=== PATIENT | female | born 1950 | race Caucasian/White ===

== ENCOUNTER 2018-12-22 14:42 | Inpatient (IN) | payer MEDICARE, MEDICAID ==
[~2018-12-22] VITALS: Ht 152.4 cm; Wt 89.0 kg
[2018-12-22 15:22] LABS: BASOPHILS # (AUTO) 0.1 X10'3 (0-0.2); BASOPHILS % (AUTO) 1.1 % (0-1); EOSINOPHILS # (AUTO) 0.1 X10'3 (0-0.9); EOSINOPHILS % (AUTO) 0.8 % (0-6); HEMATOCRIT 38.9 % (35.0-45.0); HEMOGLOBIN 12.6 g/dl (12.0-16.0); LYMPHOCYTES # (AUTO) 1.4 X10'3 (1.1-4.8); LYMPHOCYTES % (AUTO) 12.1 % (21-51); MEAN CORPUSCULAR HEMOGLOBIN 28.7 PG (27.0-31.0); MEAN CORPUSCULAR HGB CONC 32.5 g/dL (33.0-36.5); MEAN CORPUSCULAR VOLUME 88.4 FL (78-98); MEAN PLATELET VOLUME 8.1 FL (7.4-10.4); MONOCYTES # (AUTO) 0.8 X10'3 (0-0.9); MONOCYTES % (AUTO) 6.8 % (2-12); NEUTROPHILS # (AUTO) 9.3 X10'3 (1.8-7.7); NEUTROPHILS % (AUTO) 79.2 % (42-75); PLATELET COUNT 192 X10'3 (140-440); RED BLOOD COUNT 4.39 X10'6 (4.20-5.60); RED CELL DISTRIBUTION WIDTH 16.6 % (11.5-14.5); WHITE BLOOD COUNT 11.7 X10'3 (4.5-11.0)
[2018-12-22 15:35] LABS: PARTIAL THROMBOPLASTIN TIME 23 SECONDS (22-32)
[2018-12-22 15:36] LABS: ALANINE AMINOTRANSFERASE 44 U/L (12-78); ALBUMIN/GLOBULIN RATIO 0.8 (1.1-1.5); ALKALINE PHOSPHATASE 83 IU/L (46-116); ANION GAP 6 (8-16); ASPARTATE AMINO TRANSFERASE 19 U/L (10-37); BILIRUBIN,TOTAL 0.6 MG/DL (0.1-1.0); BLOOD UREA NITROGEN 32 MG/DL (7-18); BUN/CREATININE RATIO 26.4 (6.6-38.0); CHLORIDE 107 MMOL/L (99-107); CREATININE 1.21 MG/DL (0.40-0.90); GLUCOSE 104 MG/DL (70-104); POTASSIUM 4.4 MMOL/L (3.5-5.1); SODIUM 143 MMOL/L (135-145); TOTAL PROTEIN 6.7 G/DL (6.4-8.2); eGFR 45 ML/MIN
--- NOTE | 2018-12-22 17:08 | NUR ---
WAITING MD, EXPLAINED DELAY, VSS. PT IN NO DISTRESS AND LAUGHING WITH SPOUSE AT BEDSIDE.
[2018-12-22] MEDS ORDERED: albuterol 2.5 MG/3 ML nebule NEB ONE (17:30)
[2018-12-22] MEDS ORDERED: CefTRIAXone 2gm/D5W 50ml 50 ML IV ONE (17:30)
[2018-12-22] MEDS ORDERED: ipratropium/albuterol 3ml nebule NEB ONE (17:30)
[2018-12-22] MEDS ORDERED: methylPREDNISolone sod succ 125mg/2ml vial IV ONE (17:30)
[2018-12-22] MEDS ORDERED: acetaminophen 325mg tablet PO PRN (17:45)
[2018-12-22] MEDS ORDERED: ondansetron/PF 4mg/2ml inj IV PRN (17:45)
[2018-12-22] MEDS ORDERED: furosemide 40mg/4ml inj IV ONE (17:45)
[2018-12-22] MEDS ORDERED: magnesium hydroxide 30ml (MOM) UD suspension PO PRN (17:45)
[2018-12-22] MEDS ORDERED: mag hydrox/Alum hydrox/simeth 30ml oral suspension PO PRN (17:45)
--- NOTE | 2018-12-22 18:21 | NUR ---
RT present at bedside to administer breathing tx.
--- NOTE | 2018-12-22 19:31 | NUR ---
ASSISTED TO [facility], PLACED O2 NC BACK ON PATIENT
[2018-12-22] MEDS ORDERED: QUET100T33 PO (19:44)
[2018-12-22] MEDS ORDERED: DOXY100C43 PO (19:44)
[2018-12-22] MEDS ORDERED: PRED20TA PO (19:44)
[2018-12-22] MEDS ORDERED: CHLO25TA2 PO (19:44)
[2018-12-22 20:00] VITALS: BP 164/90
--- NOTE | 2018-12-22 20:00 | NUR ---
Patient in room MED 316. I have received report from YANICK MEJIA RN and had the opportunity to ask questions and assume patient care.
[2018-12-22] MEDS: heparin, porcine 5000 units/ml vial SQ SCH (22:45)
[2018-12-22] MEDS: furosemide 10 MG/1 ML 10ml inj IV SCH (22:46)
[2018-12-23 05:31] LABS: BASOPHILS % (AUTO) 0.2 % (0-1); EOSINOPHILS % (AUTO) 0.1 % (0-6); HEMATOCRIT 38.5 % (35.0-45.0); HEMOGLOBIN 12.6 g/dl (12.0-16.0); LYMPHOCYTES # (AUTO) 0.4 X10'3 (1.1-4.8); LYMPHOCYTES % (AUTO) 2.9 % (21-51); MEAN CORPUSCULAR HEMOGLOBIN 28.9 PG (27.0-31.0); MEAN CORPUSCULAR HGB CONC 32.8 g/dL (33.0-36.5); MEAN CORPUSCULAR VOLUME 88.2 FL (78-98); MEAN PLATELET VOLUME 9.2 FL (7.4-10.4); MONOCYTES # (AUTO) 0.2 X10'3 (0-0.9); MONOCYTES % (AUTO) 1.9 % (2-12); NEUTROPHILS # (AUTO) 11.9 X10'3 (1.8-7.7); NEUTROPHILS % (AUTO) 94.9 % (42-75); PLATELET COUNT 184 X10'3 (140-440); RED BLOOD COUNT 4.37 X10'6 (4.20-5.60); RED CELL DISTRIBUTION WIDTH 16.2 % (11.5-14.5); WHITE BLOOD COUNT 12.6 X10'3 (4.5-11.0)
[2018-12-23 05:34] LABS: ANION GAP 10 (8-16); BLOOD UREA NITROGEN 39 MG/DL (7-18); BUN/CREATININE RATIO 27.7 (6.6-38.0); CHLORIDE 102 MMOL/L (99-107); CREATININE 1.41 MG/DL (0.40-0.90); GLUCOSE 179 MG/DL (70-104); SODIUM 141 MMOL/L (135-145); TOTAL CARBON DIOXIDE 29.3 MMOL/L (24-32); eGFR 37 ML/MIN
[2018-12-23 06:00] VITALS: BP 157/99
--- NOTE | 2018-12-23 06:25 | NUR ---
Patient in room MED 316. I have received report from Constance NAQVI and had the opportunity to ask questions and assume patient care.
[2018-12-23] MEDS: furosemide 10 MG/1 ML 10ml inj IV SCH ×2 (07:50→20:58)
[2018-12-23] MEDS: heparin, porcine 5000 units/ml vial SQ SCH ×2 (07:51→20:57)
--- NOTE | 2018-12-23 08:05 | NUR ---
PAGER ID: [phone] MESSAGE: RE: Maria Del Carmen Prajapati, Room 316. Pt to receive first dose of Rocephin this morning. Do you want blood cultures drawn prior to giving? -Anam ACCE #[id number] Dr. Lopez paged concerning First dose of IV ABX and blood cultures
[2018-12-23] MEDS: nicotine 14mg patch - 24hr TD SCH (09:36)
[2018-12-23] MEDS: CefTRIAXone 2gm/D5W 50ml 50 ML IV SCH (09:37)
[2018-12-23] MEDS ORDERED: predniSONE 20 mg tablet PO ONE (12:15)
[2018-12-23 12:21] LABS: URINE AMPHETAMINE SCREEN NEGATIVE (Neg); URINE BARBITUATE SCREEN NEGATIVE (Neg); URINE BENZODIAZEPINES SCREEN NEGATIVE (Neg); URINE CANNABINOID SCREEN NEGATIVE (Neg); URINE COCAINE SCREEN NEGATIVE (Neg); URINE METHADONE SCREEN NEGATIVE (Neg); URINE OPIATE SCREEN NEGATIVE (Neg); URINE PHENCYCLIDINE SCREEN NEGATIVE (Neg)
--- NOTE | 2018-12-23 13:39 | NUR ---
PAGER ID: [phone] MESSAGE: 316: COOK - may we order K / mg replacement? K is 4.0 before Lasix given this AM. ty
[2018-12-23 15:00] VITALS: BP 145/85
[2018-12-23] MEDS ORDERED: FLU VACC QS 2019-20 (6 MOS UP) 60 MCG/0.5 ML VIAL IMVAC ONE (16:30)
[2018-12-23] MEDS ORDERED: pneumococcal 23-VAL P-sac vacc 25 mcg/0.5ml vial IMVAC ONE (16:30)
[2018-12-23] MEDS: ipratropium/albuterol 3ml nebule NEB SCH ×3 (16:35→23:19)
[2018-12-23 18:00] VITALS: BP 155/81
--- NOTE | 2018-12-23 18:00 | NUR ---
Patient in room MED 316. I have received report from Anam NAQVI and had the opportunity to ask questions and assume patient care.
--- NOTE | 2018-12-23 18:30 | NUR ---
.Problems reprioritized. Patient report given, questions answered & plan of care reviewed with Ade NAQVI.
[2018-12-23] MEDS: quetiapine 100mg tablet PO SCH (20:54)
[2018-12-23 23:00] VITALS: BP 127/65
[2018-12-24] VITALS (7 sets, daily range): BP systolic 100–154; BP diastolic 66–113
[2018-12-24] MEDS: ipratropium/albuterol 3ml nebule NEB SCH ×6 (02:59→23:40)
[2018-12-24 05:35] LABS: ALBUMIN 2.7 G/DL (3.4-5.0); ANION GAP 4 (8-16); BLOOD UREA NITROGEN 38 MG/DL (7-18); BUN/CREATININE RATIO 29.7 (6.6-38.0); CALCIUM 8.6 MG/DL (8.5-10.1); CHLORIDE 101 MMOL/L (99-107); CREATININE 1.28 MG/DL (0.40-0.90); GLUCOSE 119 MG/DL (70-104); POTASSIUM 3.6 MMOL/L (3.5-5.1); SODIUM 141 MMOL/L (135-145); TOTAL CARBON DIOXIDE 35.9 MMOL/L (24-32); eGFR 42 ML/MIN
[2018-12-24 06:15] LABS: BASOPHILS # (AUTO) 0.1 X10'3 (0-0.2); EOSINOPHILS % (AUTO) 0.2 % (0-6); HEMATOCRIT 36.3 % (35.0-45.0); LYMPHOCYTES # (AUTO) 1.6 X10'3 (1.1-4.8); LYMPHOCYTES % (AUTO) 12.8 % (21-51); MEAN CORPUSCULAR HEMOGLOBIN 28.9 PG (27.0-31.0); MEAN CORPUSCULAR HGB CONC 33.1 g/dL (33.0-36.5); MEAN CORPUSCULAR VOLUME 87.4 FL (78-98); MEAN PLATELET VOLUME 9.5 FL (7.4-10.4); MONOCYTES # (AUTO) 0.8 X10'3 (0-0.9); MONOCYTES % (AUTO) 6.5 % (2-12); NEUTROPHILS % (AUTO) 79.5 % (42-75); PLATELET COUNT 159 X10'3 (140-440); RED BLOOD COUNT 4.15 X10'6 (4.20-5.60); RED CELL DISTRIBUTION WIDTH 16.5 % (11.5-14.5); WHITE BLOOD COUNT 12.5 X10'3 (4.5-11.0)
[2018-12-24] MEDS: predniSONE 20 mg tablet PO SCH (09:55)
[2018-12-24] MEDS: furosemide 10 MG/1 ML 10ml inj IV SCH ×2 (09:56→20:56)
[2018-12-24] MEDS: nicotine 14mg patch - 24hr TD SCH (09:56)
[2018-12-24] MEDS: heparin, porcine 5000 units/ml vial SQ SCH ×2 (09:56→20:50)
[2018-12-24] MEDS: CefTRIAXone 2gm/D5W 50ml 50 ML IV SCH (09:57)
[2018-12-24] MEDS: atenolol 25mg tablet PO SCH ×2 (14:00→17:02)
[2018-12-24] MEDS: quetiapine 100mg tablet PO SCH (20:47)
[2018-12-24] MEDS: lactobacillus rhamnosus 10,000 MMU CELLS/CAPSULE PO SCH (20:47)
[2018-12-25] MEDS ORDERED: nicotine 7mg patch - 24hr TD ONE (00:25)
[2018-12-25 02:00] VITALS: BP 127/71
[2018-12-25] MEDS: ipratropium/albuterol 3ml nebule NEB SCH ×4 (03:04→16:13)
[2018-12-25 06:00] VITALS: BP 122/85
--- NOTE | 2018-12-25 06:15 | NUR ---
Patient in room MED 311. I have received report from DRISS Booker and had the opportunity to ask questions and assume patient care.
--- NOTE | 2018-12-25 06:26 | NUR ---
Problems reprioritized. Patient report given, questions answered & plan of care reviewed with Phil NAQVI.
[2018-12-25 06:28] LABS: ALBUMIN 2.8 G/DL (3.4-5.0); ANION GAP 5 (8-16); BLOOD UREA NITROGEN 42 MG/DL (7-18); BUN/CREATININE RATIO 27.1 (6.6-38.0); CALCIUM 8.4 MG/DL (8.5-10.1); CHLORIDE 98 MMOL/L (99-107); CREATININE 1.55 MG/DL (0.40-0.90); GLUCOSE 128 MG/DL (70-104); POTASSIUM 3.5 MMOL/L (3.5-5.1); SODIUM 141 MMOL/L (135-145); TOTAL CARBON DIOXIDE 38.4 MMOL/L (24-32); eGFR 33 ML/MIN
--- NOTE | 2018-12-25 06:41 | NUR ---
I have received report from Melissa NAQVI and had the opportunity to ask questions and assume patient care.
[2018-12-25 06:49] LABS: BASOPHILS % (AUTO) 0.4 % (0-1); EOSINOPHILS # (AUTO) 0.1 X10'3 (0-0.9); EOSINOPHILS % (AUTO) 0.5 % (0-6); HEMOGLOBIN 12.2 g/dl (12.0-16.0); LYMPHOCYTES # (AUTO) 2.1 X10'3 (1.1-4.8); LYMPHOCYTES % (AUTO) 17.7 % (21-51); MEAN CORPUSCULAR HEMOGLOBIN 28.9 PG (27.0-31.0); MEAN CORPUSCULAR VOLUME 87.5 FL (78-98); MEAN PLATELET VOLUME 9.4 FL (7.4-10.4); MONOCYTES # (AUTO) 0.9 X10'3 (0-0.9); MONOCYTES % (AUTO) 7.5 % (2-12); NEUTROPHILS # (AUTO) 8.9 X10'3 (1.8-7.7); NEUTROPHILS % (AUTO) 73.9 % (42-75); PLATELET COUNT 159 X10'3 (140-440); RED BLOOD COUNT 4.23 X10'6 (4.20-5.60); RED CELL DISTRIBUTION WIDTH 16.5 % (11.5-14.5)
[2018-12-25] MEDS: lactobacillus rhamnosus 10,000 MMU CELLS/CAPSULE PO SCH (07:31)
[2018-12-25] MEDS: CefTRIAXone 2gm/D5W 50ml 50 ML IV SCH (07:31)
[2018-12-25] MEDS: nicotine 14mg patch - 24hr TD SCH (07:32)
[2018-12-25] MEDS: atenolol 25mg tablet PO SCH (07:33)
[2018-12-25] MEDS: furosemide 10 MG/1 ML 10ml inj IV SCH (07:33)
[2018-12-25] MEDS: heparin, porcine 5000 units/ml vial SQ SCH (07:34)
[2018-12-25] MEDS: predniSONE 20 mg tablet PO SCH (07:37)
[2018-12-25 11:00] VITALS: BP 126/78
[2018-12-25] MEDS ORDERED: PRED10TA23 PO (13:30)
[2018-12-25] MEDS ORDERED: FURO-149 PO (13:30)
[2018-12-25] MEDS ORDERED: ALBU8HFA PO (13:30)
[2018-12-25] MEDS ORDERED: POTA20TA19 PO (13:30)
[2018-12-25] MEDS ORDERED: ATEN-168 PO (13:30)
[2018-12-25] MEDS ORDERED: LEVO750T21 PO (13:30)
[2018-12-25] MEDS ORDERED: atenolol 25mg tablet PO SCH (13:51)
--- NOTE | 2018-12-25 13:59 | NUR ---
Orienteer documentation: I have reviewed and agree with all interventions, assessments performed and documented by Ann Marie NAQVI.
--- NOTE | 2018-12-25 14:39 | NUR ---
PAGER ID: [phone] MESSAGE: [id number]-Cook. Pt. is asking about nicotine patches, can we order those for her with the other discharge meds? Thank You ACCE [id number]
[2018-12-25 15:00] VITALS: BP 134/83
--- NOTE | 2018-12-25 16:55 | NUR ---
Per MD, patient stable for discharge. Prescriptions called into [facility], patient will picker in the AM when pharmacy is open. All belongings sent with patient and family member. PIV removed, tip intact, pt tolerated well. Discharge paperwork reviewed with and signed by patient. All questions and concerns were addressed with patient and family member. Transported via WC by nursing staff to personal vehicle.
[2018-12-26] MEDS ORDERED: LISI2.5T2 PO (17:50)
== END 2018-12-25 17:02 | disposition home health service (06) | DRG 291 ==
LOC: ER 14:43 → ED HOLD 18:10 → MED 3N 19:55
PROVIDERS: ADMIT Family Medicine; ATTEND Family Medicine
PROC: 3E02340 Introduction of Influenza Vaccine into Muscle, Percutaneous Approach (ICD-10-PCS; principal; 2018-12-25)
PROC: 3E0234Z Introduction of Serum, Toxoid and Vaccine into Muscle, Percutaneous Approach (ICD-10-PCS; 2018-12-25)
DX: I11.0 Hypertensive heart disease with heart failure (principal); J96.01 Acute respiratory failure with hypoxia; J18.9 Pneumonia, unspecified organism; I50.21 Acute systolic (congestive) heart failure; E87.3 Alkalosis; F17.210 Nicotine dependence, cigarettes, uncomplicated; I27.20 Pulmonary hypertension, unspecified; I42.0 Dilated cardiomyopathy; J43.9 Emphysema, unspecified; Z90.710 Acquired absence of both cervix and uterus; Z90.49 Acquired absence of other specified parts of digestive tract; Z23 Encounter for immunization; Z56.0 Unemployment, unspecified; Z90.722 Acquired absence of ovaries, bilateral
CPT/HCPCS: 36415; 71046; 80048; 80053; 80305; 83880; 84484; 85025; 85610; 85730; 87081; 93005; 93306; 94640; 94760; 99285; G0378; J0696; J1644; J1940; J2930; J7512; Q2037

== ENCOUNTER 2019-02-01 04:31 | Inpatient (IN) | payer MEDICARE, MEDICAID ==
[~2019-02-01] VITALS: Ht 162.6 cm; Wt 81.8 kg
[~2019-02-01 04:31] MED LIST: ATEN-168 PO; FURO-149 PO; LISI2.5T2 PO; QUET100T33 PO
[2019-02-01] MEDS ORDERED: NO HOME MEDS (04:47)
[2019-02-01] MEDS ORDERED: aspirin 81mg tab.chew PO ONE (04:50)
[2019-02-01] MEDS ORDERED: furosemide 10 MG/1 ML 10ml inj IV ONE (04:50)
[2019-02-01] MEDS ORDERED: nitroGLYCERIN 0.4mg/hour patch TD ONE (04:50)
[2019-02-01 05:23] LABS: BASOPHILS # (AUTO) 0.1 X10'3 (0-0.2); EOSINOPHILS % (AUTO) 0.5 % (0-6); HEMATOCRIT 41.3 % (35.0-45.0); HEMOGLOBIN 13.9 g/dl (12.0-16.0); LYMPHOCYTES # (AUTO) 1.3 X10'3 (1.1-4.8); LYMPHOCYTES % (AUTO) 15.5 % (21-51); MEAN CORPUSCULAR HEMOGLOBIN 29.3 PG (27.0-31.0); MEAN CORPUSCULAR HGB CONC 33.7 g/dL (33.0-36.5); MEAN CORPUSCULAR VOLUME 87.1 FL (78-98); MEAN PLATELET VOLUME 9.1 FL (7.4-10.4); MONOCYTES # (AUTO) 0.6 X10'3 (0-0.9); MONOCYTES % (AUTO) 6.4 % (2-12); NEUTROPHILS # (AUTO) 6.7 X10'3 (1.8-7.7); NEUTROPHILS % (AUTO) 76.6 % (42-75); PLATELET COUNT 237 X10'3 (140-440); RED BLOOD COUNT 4.75 X10'6 (4.20-5.60); WHITE BLOOD COUNT 8.7 X10'3 (4.5-11.0)
[2019-02-01 05:40] LABS: ALANINE AMINOTRANSFERASE 39 U/L (12-78); ALBUMIN 3.1 G/DL (3.4-5.0); ALBUMIN/GLOBULIN RATIO 0.8 (1.1-1.5); ALKALINE PHOSPHATASE 107 IU/L (46-116); ANION GAP 11 (8-16); ASPARTATE AMINO TRANSFERASE 34 U/L (10-37); BILIRUBIN,TOTAL 1.3 MG/DL (0.1-1.0); BLOOD UREA NITROGEN 25 MG/DL (7-18); BUN/CREATININE RATIO 21.7 (6.6-38.0); CALCIUM 8.9 MG/DL (8.5-10.1); CHLORIDE 104 MMOL/L (99-107); CREATININE 1.15 MG/DL (0.40-0.90); GLUCOSE 128 MG/DL (70-104); POTASSIUM 3.7 MMOL/L (3.5-5.1); SODIUM 140 MMOL/L (135-145); TOTAL CARBON DIOXIDE 25.3 MMOL/L (24-32); TOTAL PROTEIN 7.2 G/DL (6.4-8.2); eGFR 47 ML/MIN
[2019-02-01 05:50] LABS: MAGNESIUM 1.6 MG/DL (1.5-2.4)
--- NOTE | 2019-02-01 06:09 | NUR ---
Patient requests bipap be removed because she states it is harder to breathe. Patient placed back on nasal canula and will continue to monitor need for bipap.
[2019-02-01] MEDS ORDERED: magnesium 2GM in 50ml NS 50 ML IV PRN (06:25)
[2019-02-01] MEDS ORDERED: magnesium 4gm in 100ml NS 100 ML IV PRN (06:25)
[2019-02-01] MEDS ORDERED: magnesium Cl slow-release 64mg tablet PO PRN (06:25)
[2019-02-01] MEDS ORDERED: ondansetron/PF 4mg/2ml inj IV PRN (06:25)
[2019-02-01] MEDS ORDERED: acetaminophen 325mg tablet PO PRN (06:25)
[2019-02-01] MEDS ORDERED: potassium CL 10mEq/100ml bag 100 ML IV PRN ×2 (06:25)
[2019-02-01] MEDS ORDERED: potassium Cl 20 mEq SR tablet PO PRN (06:25)
[2019-02-01] MEDS ORDERED: methylPREDNISolone sod succ 125mg/2ml vial IV ONE (06:35)
[2019-02-01] MEDS ORDERED: albuterol 2.5 MG/3 ML nebule NEB PRN (06:35)
[2019-02-01] MEDS: K and/or MAG REPLACEMENT MC SCH ×2 (08:00→20:00)
[2019-02-01] MEDS ORDERED: metoprolol tartrate 50mg tablet PO SCH (08:00)
[2019-02-01 08:14] LABS: D-DIMER 1.86 MG/L FEU (0-0.50)
[2019-02-01] MEDS: lisinopril 2.5mg tablet PO SCH (08:43)
[2019-02-01] MEDS: heparin, porcine 5000 units/ml vial SQ SCH ×2 (08:45→20:41)
[2019-02-01] MEDS: furosemide 40mg/4ml inj IV SCH ×2 (08:47→20:41)
--- NOTE | 2019-02-01 09:06 | NUR ---
Patient in room ED 6. I have received report from jose,directional bore operator and had the opportunity to ask questions and assume patient care.
[2019-02-01 09:50] VITALS: BP 154/99
--- NOTE | 2019-02-01 10:30 | NUR ---
Received pt into rm 313,oriented to environment pt tachypnic,rr=28,sao2 3l/nc=94,Dr. zhu aware trponin 0.07-0.08.orders taken
[2019-02-01 11:00] VITALS: BP 158/109
[2019-02-01 11:03] LABS: ALBUMIN 3.3 G/DL (3.4-5.0); ANION GAP 5 (8-16); BLOOD UREA NITROGEN 26 MG/DL (7-18); BUN/CREATININE RATIO 20.5 (6.6-38.0); CALCIUM 9.2 MG/DL (8.5-10.1); CHLORIDE 103 MMOL/L (99-107); CREATININE 1.27 MG/DL (0.40-0.90); GLUCOSE 137 MG/DL (70-104); PHOSPHORUS 4.2 MG/DL (2.3-4.5); POTASSIUM 3.9 MMOL/L (3.5-5.1); SODIUM 139 MMOL/L (135-145); TOTAL CARBON DIOXIDE 30.6 MMOL/L (24-32); eGFR 42 ML/MIN
[2019-02-01 11:40] LABS: ABG BASE EXCESS 0.4 mmol/L (-2.0-3.0); ABG HCO3 23.9 mmol/L (22.0-26.0); ABG OXYGEN SATURATION 95.2 % (95-98); ABG PCO2 (T) 35.4 mmHg (35.0-45.0); ABG PH (T) 7.448 (7.350-7.450); ABG PO2 (T) 80.8 mmHg (83-108); ALLEN'S TEST Positive; FLOW 2 L/min; FO2Hb 94.2 % (94-100); TOTAL HEMOGLOBIN 14.3 G/dl (12.0-16.0)
[2019-02-01 12:21] LABS: MAGNESIUM 1.4 MG/DL (1.5-2.4)
[2019-02-01 15:00] VITALS: BP 152/82
[2019-02-01] MEDS ORDERED: LORazepam 2 mg/ml vial IV ONE (16:00)
[2019-02-01 18:00] VITALS: BP 139/79
--- NOTE | 2019-02-01 18:59 | NUR ---
Patient in room MED 313. I have received report from Jessica Reddy and had the opportunity to ask questions and assume patient care.
[2019-02-01] MEDS: metoprolol tartrate 12.5mg (1/2 tablet) PO SCH (20:41)
[2019-02-01] MEDS: ipratropium 0.5 MG/2.5ML nebule IH SCH ×2 (21:43→21:48)
[2019-02-01 22:00] VITALS: BP 121/67
[2019-02-02] VITALS (7 sets, daily range): BP systolic 102–137; BP diastolic 67–85
[2019-02-02] MEDS: ipratropium 0.5 MG/2.5ML nebule IH SCH ×4 (02:55→20:43)
[2019-02-02 03:30] LABS: BASOPHILS # (AUTO) 0.1 X10'3 (0-0.2); BASOPHILS % (AUTO) 0.4 % (0-1); EOSINOPHILS % (AUTO) 0.1 % (0-6); HEMATOCRIT 38.2 % (35.0-45.0); HEMOGLOBIN 12.8 g/dl (12.0-16.0); LYMPHOCYTES # (AUTO) 1.2 X10'3 (1.1-4.8); LYMPHOCYTES % (AUTO) 8.3 % (21-51); MEAN CORPUSCULAR HEMOGLOBIN 28.8 PG (27.0-31.0); MEAN CORPUSCULAR HGB CONC 33.4 g/dL (33.0-36.5); MEAN PLATELET VOLUME 8.6 FL (7.4-10.4); MONOCYTES # (AUTO) 1.1 X10'3 (0-0.9); MONOCYTES % (AUTO) 8.1 % (2-12); NEUTROPHILS # (AUTO) 11.7 X10'3 (1.8-7.7); NEUTROPHILS % (AUTO) 83.1 % (42-75); PLATELET COUNT 261 X10'3 (140-440); RED BLOOD COUNT 4.44 X10'6 (4.20-5.60); RED CELL DISTRIBUTION WIDTH 17.4 % (11.5-14.5); WHITE BLOOD COUNT 14.1 X10'3 (4.5-11.0)
[2019-02-02 03:42] LABS: ALBUMIN 2.7 G/DL (3.4-5.0); ANION GAP 3 (8-16); BLOOD UREA NITROGEN 33 MG/DL (7-18); BUN/CREATININE RATIO 21.4 (6.6-38.0); CALCIUM 8.4 MG/DL (8.5-10.1); CHLORIDE 101 MMOL/L (99-107); CREATININE 1.54 MG/DL (0.40-0.90); GLUCOSE 106 MG/DL (70-104); MAGNESIUM 2.7 MG/DL (1.5-2.4); POTASSIUM 3.7 MMOL/L (3.5-5.1); SODIUM 138 MMOL/L (135-145); TOTAL CARBON DIOXIDE 33.7 MMOL/L (24-32); eGFR 34 ML/MIN
--- NOTE | 2019-02-02 06:27 | NUR ---
Problems reprioritized. Patient report given, questions answered & plan of care reviewed with Sophia NAQVI.
--- NOTE | 2019-02-02 06:30 | NUR ---
Patient in room MED 313. I have received report from Jeff NAQVI and had the opportunity to ask questions and assume patient care.
[2019-02-02] MEDS: K and/or MAG REPLACEMENT MC SCH ×2 (08:00→20:00)
[2019-02-02] MEDS: furosemide 40mg/4ml inj IV SCH ×2 (09:53→19:35)
[2019-02-02] MEDS: heparin, porcine 5000 units/ml vial SQ SCH ×2 (09:54→19:35)
[2019-02-02] MEDS: lisinopril 2.5mg tablet PO SCH (09:57)
[2019-02-02] MEDS: nicotine 21mg patch - 24 hr TD SCH (09:58)
[2019-02-02] MEDS: metoprolol tartrate 12.5mg (1/2 tablet) PO SCH ×2 (09:58→19:36)
--- NOTE | 2019-02-02 19:04 | NUR ---
Patient in room MED 313. I have received report from Sophia NAQVI and had the opportunity to ask questions and assume patient care.
[2019-02-02] MEDS ORDERED: QUET100T33 PO (19:51)
[2019-02-03 02:00] VITALS: BP 117/67
[2019-02-03] MEDS: ipratropium 0.5 MG/2.5ML nebule IH SCH ×3 (02:33→16:02)
[2019-02-03 06:00] VITALS: BP 123/76
[2019-02-03 06:31] LABS: BASOPHILS # (AUTO) 0.1 X10'3 (0-0.2); BASOPHILS % (AUTO) 0.9 % (0-1); EOSINOPHILS # (AUTO) 0.1 X10'3 (0-0.9); EOSINOPHILS % (AUTO) 0.5 % (0-6); HEMOGLOBIN 13.7 g/dl (12.0-16.0); LYMPHOCYTES # (AUTO) 2.2 X10'3 (1.1-4.8); LYMPHOCYTES % (AUTO) 18.4 % (21-51); MEAN CORPUSCULAR HEMOGLOBIN 29.3 PG (27.0-31.0); MEAN CORPUSCULAR HGB CONC 33.5 g/dL (33.0-36.5); MEAN CORPUSCULAR VOLUME 87.5 FL (78-98); MEAN PLATELET VOLUME 9.8 FL (7.4-10.4); MONOCYTES # (AUTO) 0.9 X10'3 (0-0.9); MONOCYTES % (AUTO) 7.7 % (2-12); NEUTROPHILS # (AUTO) 8.7 X10'3 (1.8-7.7); NEUTROPHILS % (AUTO) 72.5 % (42-75); PLATELET COUNT 216 X10'3 (140-440); RED BLOOD COUNT 4.69 X10'6 (4.20-5.60); RED CELL DISTRIBUTION WIDTH 17.8 % (11.5-14.5)
--- NOTE | 2019-02-03 06:34 | NUR ---
Problems reprioritized. Patient report given, questions answered & plan of care reviewed with Keshia NAQVI.
[2019-02-03 06:38] LABS: ALBUMIN 2.9 G/DL (3.4-5.0); ANION GAP 11 (8-16); BLOOD UREA NITROGEN 42 MG/DL (7-18); CALCIUM 8.3 MG/DL (8.5-10.1); CHLORIDE 98 MMOL/L (99-107); CREATININE 1.68 MG/DL (0.40-0.90); GLUCOSE 120 MG/DL (70-104); MAGNESIUM 1.9 MG/DL (1.5-2.4); POTASSIUM 3.4 MMOL/L (3.5-5.1); SODIUM 139 MMOL/L (135-145); TOTAL CARBON DIOXIDE 30.4 MMOL/L (24-32); eGFR 30 ML/MIN
[2019-02-03] MEDS: heparin, porcine 5000 units/ml vial SQ SCH (08:00)
[2019-02-03] MEDS: furosemide 40mg/4ml inj IV SCH (08:34)
[2019-02-03] MEDS: potassium Cl 20 mEq SR tablet PO PRN ×2 (08:36→15:50)
[2019-02-03] MEDS: lisinopril 2.5mg tablet PO SCH (08:40)
[2019-02-03] MEDS: metoprolol tartrate 12.5mg (1/2 tablet) PO SCH (08:40)
[2019-02-03] MEDS: nicotine 21mg patch - 24 hr TD SCH (08:41)
[2019-02-03] MEDS: K and/or MAG REPLACEMENT MC SCH (08:44)
[2019-02-03 11:00] VITALS: BP 125/74
[2019-02-03] MEDS ORDERED: furosemide 20MG tablet PO ONE (12:40)
[2019-02-03 15:00] VITALS: BP 126/88
[2019-02-03] MEDS ORDERED: UMEC62.5 NAS (15:00)
[2019-02-03] MEDS ORDERED: LISI2.5T2 PO (15:00)
[2019-02-03] MEDS ORDERED: FURO-150 PO (15:00)
[2019-02-03] MEDS ORDERED: METO25TA6 PO (15:00)
[2019-02-03] MEDS ORDERED: ALBU18HF2 IH (15:00)
[2019-02-03] MEDS ORDERED: BUDE10.22 INH (15:00)
--- NOTE | 2019-02-03 15:26 | NUR ---
O2 Sat at rest on room air:__85_% If below 89%: Recovery O2 Sat at rest on _3__LPM:_92__%:___% via NC (mask/nasal cannula, etc..) No further documentation is necessary. If O2 Sat did not drop below 89% on room air,ambulate patient on room air. O2 Sat while ambulating on room air:___% Recovery O2 Sat while ambulating on ___LPM:___% No further documentation is necessary. If patient does not drop below 89% while ambulating, he/she does not qualify for home O2.
--- NOTE | 2019-02-03 15:28 | NUR ---
CASE MANAGEMENT PAGED: [phone]: RICA - KARLENE. NEEDS HOME 02, QUALIFIYING NOTE DONE. TY
--- NOTE | 2019-02-03 15:52 | NUR ---
Case management called, it might be too late to get D/C to home with O2.
--- NOTE | 2019-02-03 16:00 | NUR ---
O2 was delivered, pt was provided teaching
--- NOTE | 2019-02-03 16:47 | NUR ---
RN called Shey the sister, will fruit or nut picker pt in 30 min
--- NOTE | 2019-02-03 18:00 | NUR ---
Problems reprioritized. Patient report given, questions answered & plan of care reviewed with DRISS Aguilar.
[2019-02-03] MEDS ORDERED: Melatonin 3mg tablet PO ONE (21:00)
[2019-02-04] MEDS ORDERED: furosemide 40mg tablet PO SCH (08:00)
== END 2019-02-03 18:20 | disposition home or self-care (01) | DRG 280 ==
LOC: ER 04:32 → ED HOLD 06:25 → EDBEDREQ 07:45 → MED 3N 09:31
PROVIDERS: ADMIT Internal Medicine; ATTEND Hospitalist
PROC: 5A09357 Assistance with Respiratory Ventilation, Less than 24 Consecutive Hours, Continuous Positive Airway Pressure (ICD-10-PCS; principal; 2019-02-01)
PROC: CB121ZZ Planar Nuclear Medicine Imaging of Lungs and Bronchi using Technetium 99m (Tc-99m) (ICD-10-PCS; 2019-02-01)
DX: I13.0 Hypertensive heart and chronic kidney disease with heart failure and stage 1 through stage 4 chronic kidney disease, or unspecified chronic kidney disease (principal); I50.23 Acute on chronic systolic (congestive) heart failure; I21.A1 Myocardial infarction type 2; J96.21 Acute and chronic respiratory failure with hypoxia; F17.210 Nicotine dependence, cigarettes, uncomplicated; J43.9 Emphysema, unspecified; R00.0 Tachycardia, unspecified; M85.80 Other specified disorders of bone density and structure, unspecified site; N18.3 Chronic kidney disease, stage 3 (moderate); Z66 Do not resuscitate; Z88.0 Allergy status to penicillin; Z90.49 Acquired absence of other specified parts of digestive tract; Z90.710 Acquired absence of both cervix and uterus; Z71.6 Tobacco abuse counseling
CPT/HCPCS: 36415; 36600; 71045; 78582; 80048; 80053; 80069; 82803; 83735; 83880; 84484; 85018; 85025; 85379; 87081; 93005; 94640; 94660; 94760; 96374; 99285; A9539; A9540; G0378; J1644; J1940; J2060; J2930; J3475

== ENCOUNTER 2019-04-13 09:17 | Emergency (ER) | payer MEDICAID, MEDICARE ==
[~2019-04-13] VITALS: Ht 162.6 cm; Wt 90.9 kg
[~2019-04-13 09:17] MED LIST changes: +ALBU18HF2 IH; -ATEN-168 PO; +BUDE10.22 INH; -FURO-149 PO; +FURO-150 PO; +METO25TA6 PO; +UMEC62.5 NAS
[2019-04-13] MEDS ORDERED: furosemide 10 MG/1 ML 10ml inj IV ONE (09:45)
[2019-04-13 10:06] LABS: BASOPHILS # (AUTO) 0.1 X10'3 (0-0.2); LYMPHOCYTES # (AUTO) 1.2 X10'3 (1.1-4.8); MONOCYTES # (AUTO) 0.5 X10'3 (0-0.9)
[2019-04-13 10:08] LABS: BASOPHILS % (AUTO) 1.2 % (0-1); EOSINOPHILS % (AUTO) 0.5 % (0-6); HEMATOCRIT 42.2 % (35.0-45.0); LYMPHOCYTES % (AUTO) 12.2 % (21-51); MEAN CORPUSCULAR HEMOGLOBIN 29.1 PG (27.0-31.0); MEAN CORPUSCULAR HGB CONC 33.1 g/dL (33.0-36.5); MEAN CORPUSCULAR VOLUME 87.9 FL (78-98); MEAN PLATELET VOLUME 8.7 FL (7.4-10.4); MONOCYTES % (AUTO) 5.3 % (2-12); NEUTROPHILS # (AUTO) 7.7 X10'3 (1.8-7.7); NEUTROPHILS % (AUTO) 80.8 % (42-75); PLATELET COUNT 238 X10'3 (140-440); RED CELL DISTRIBUTION WIDTH 18.2 % (11.5-14.5); WHITE BLOOD COUNT 9.6 X10'3 (4.5-11.0)
[2019-04-13 10:20] LABS: ALANINE AMINOTRANSFERASE 30 U/L (12-78); ALBUMIN 3.5 G/DL (3.4-5.0); ALBUMIN/GLOBULIN RATIO 0.8 (1.1-1.5); ALKALINE PHOSPHATASE 120 IU/L (46-116); ANION GAP 9 (8-16); ASPARTATE AMINO TRANSFERASE 25 U/L (10-37); BILIRUBIN,TOTAL 1.1 MG/DL (0.1-1.0); BLOOD UREA NITROGEN 38 MG/DL (7-18); CALCIUM 9.2 MG/DL (8.5-10.1); CHLORIDE 106 MMOL/L (99-107); CREATININE 1.41 MG/DL (0.40-0.90); GLUCOSE 120 MG/DL (70-104); POTASSIUM 4.3 MMOL/L (3.5-5.1); SODIUM 144 MMOL/L (135-145); TOTAL PROTEIN 7.8 G/DL (6.4-8.2); eGFR 37 ML/MIN
[2019-04-13 12:34] VITALS: BP 144/75
== END 2019-04-13 12:34 | disposition home or self-care (01) ==
LOC: ER 09:17
DX: I50.23 Acute on chronic systolic (congestive) heart failure (principal); M71.22 Synovial cyst of popliteal space [Baker], left knee; I11.0 Hypertensive heart disease with heart failure; F17.210 Nicotine dependence, cigarettes, uncomplicated; J43.9 Emphysema, unspecified; Z90.49 Acquired absence of other specified parts of digestive tract; Z90.710 Acquired absence of both cervix and uterus; Z98.890 Other specified postprocedural states; Z56.0 Unemployment, unspecified; Z88.0 Allergy status to penicillin; Z79.899 Other long term (current) drug therapy
CPT/HCPCS: 71045; 80053; 84484; 85025; 93971; 96374; 99285; J1940